=== PATIENT | male | born 1940 | race Caucasian/White ===

== ENCOUNTER 2019-12-10 13:05 | Emergency (ER) | payer OTHER ==
[~2019-12-10] VITALS: Ht 175.3 cm; Wt 93.4 kg
[2019-12-10 13:19] VITALS: BP_SYST 142
[2019-12-10 14:45] LABS: BILIRUBIN,URINE 1+ (NEGATIVE); BLOOD, URINE 3+ (NEGATIVE); CLARITY/URINE TURBID (CLEAR); COLOR,URINE RED (YELLOW); GLUCOSE,URINE TRACE (NEGATIVE); KETONES,URINE 1+ (NEGATIVE); LEUKOCYTE ESTERASE ,URINE TRACE (NEGATIVE); NITRITE, URINE NEGATIVE (NEGATIVE); PH,URINE 5.5 (5.0-8.0); PROTEIN URINE 2+ (NEGATIVE)
[2019-12-10 14:51] LABS: BACTERIA,URINE FEW /HPF (None Seen); RBC,URINE >100 /HPF (0-3)
[2019-12-10 15:09] LABS: ANION GAP 9 (5-15); CALCIUM 9.8 mg/dL (8.4-11.0); CHLORIDE 96 mmol/L (98-107); CREATININE 0.82 mg/dL (0.55-1.30); GLUCOSE 116 mg/dL (70-99); SODIUM SERUM 132 mmol/L (136-145); UREA NITROGEN, BLOOD 27 mg/dL (8-21)
[2019-12-10 15:13] LABS: BASOPHILS % (AUTO) 0.5 % (0.0-2.0); EOSINOPHILS # (AUTO) 0.1 K/uL (0.0-0.4); EOSINOPHILS % (AUTO) 0.9 % (0.0-4.0); HEMATOCRIT 44.5 % (36-54); HEMOGLOBIN 14.7 g/dL (14.0-18.0); LYMPHOCYTES % (AUTO) 18.1 % (20.5-51.5); MEAN CORPUSCULAR HEMOGLOBIN 32 pg (27-31); MEAN CORPUSCULAR HGB CONC 33 % (32-36); MEAN CORPUSCULAR VOLUME 98 fL (79.0-98.0); MONOCYTES # (AUTO) 0.6 K/uL (0.0-1.0); MONOCYTES % (AUTO) 10.9 % (1.7-9.3); NEUTROPHILS % (AUTO) 69.6 % (40.0-70.0); PLATELET COUNT (AUTO) 117 K/uL (130-430); RED BLOOD CELL COUNT(AUTO) 4.55 MIL/uL (4.2-6.2); RED CELL DISTRIBUTION WIDTH 13.4 % (9.0-15.0); WHITE BLOOD COUNT (AUTO) 5.7 K/uL (4.8-10.8)
[2019-12-10 15:15] LABS: ALANINE AMINOTRANSFERASE 49 U/L (12-78); ALBUMIN 4.4 g/dL (3.4-4.8); ASPARTATE AMINOTRANSFERASE 42 U/L (10-37); TOTAL BILIRUBIN 1.9 mg/dL (0.0-1.0)
[2019-12-10 15:41] VITALS: BP_SYST 142
== END 2019-12-10 15:30 | disposition home or self-care (01) ==
LOC: SED 13:05
DX: R31.9 Hematuria, unspecified (principal); I10 Essential (primary) hypertension
CPT/HCPCS: 36415; 80053; 81000-TC; 85025; 87086; 99284

== ENCOUNTER 2022-04-11 10:44 | Emergency (ER) | payer OTHER ==
[~2022-04-11] VITALS: Ht 175.3 cm; Wt 86.2 kg
[2022-04-11 10:48] VITALS: BP_SYST 152
--- NOTE | 2022-04-11 10:53 | NUR ---
Placed in room 08 . Placed on monitor technician, blood pressure machine and pulse oximeter. To gown for exam. Side rails up. Report given to DIANE GRAF.
--- NOTE | 2022-04-11 11:00 | NUR ---
ER at bedside examining patient.
--- NOTE | 2022-04-11 11:18 | NUR ---
Pt bib BLS from home. CC mechanical fall. Pt states no LOC, fall occurred night before. Pt has no recollection of what caused the fall. aaox2 skin intact Right should to distal elbow contusion dark coverage. Pt denies blood thinning medications, cannot recall names of the '3' medications he takes. Pt has bilateral lower leg edema+2. Pt denies SOB, no neouro defecits, Gerardo, pt smiling speaking full sentences. Pt states lives alone, a neighbor contacted 911 and will require transportation home.
[2022-04-11 11:47] LABS: BASOPHILS % (AUTO) 0.2 % (0.0-2.0); HEMATOCRIT 38.6 % (36-54); HEMOGLOBIN 13.7 g/dL (14.0-18.0); LYMPHOCYTES # (AUTO) 0.3 K/uL (1.0-5.5); MEAN CORPUSCULAR HEMOGLOBIN 35 pg (27-31); MEAN CORPUSCULAR HGB CONC 36 % (32-36); MEAN CORPUSCULAR VOLUME 98 fL (79.0-98.0); MONOCYTES # (AUTO) 0.9 K/uL (0.0-1.0); MONOCYTES % (AUTO) 8.9 % (1.7-9.3); NEUTROPHILS # (AUTO) 8.5 K/uL (1.8-7.7); NEUTROPHILS % (AUTO) 87.9 % (40.0-70.0); PLATELET COUNT (AUTO) 100 K/uL (130-430); RED BLOOD CELL COUNT(AUTO) 3.94 MIL/uL (4.2-6.2); WHITE BLOOD COUNT (AUTO) 9.7 K/uL (4.8-10.8)
[2022-04-11 12:12] LABS: ANION GAP 7 (5-15); CALCIUM 9.4 mg/dL (8.4-11.0); CHLORIDE 93 mmol/L (98-107); CREATININE 0.99 mg/dL (0.55-1.30); GLUCOSE 143 mg/dL (70-99); UREA NITROGEN, BLOOD 15 mg/dL (8-21)
[2022-04-11 12:17] LABS: ALANINE AMINOTRANSFERASE 82 U/L (12-78); ALBUMIN 3.8 g/dL (3.4-4.8); ASPARTATE AMINOTRANSFERASE 61 U/L (10-37); TOTAL BILIRUBIN 2.4 mg/dL (0.0-1.0)
[2022-04-11] MEDS ORDERED: TRAM50TA PO (12:29)
--- NOTE | 2022-04-11 12:30 | NUR ---
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 Prior to patient contact, ACSW consulted with ED staff who expressed need for social service support for additional assessment for safe discharge as patient has a shoulder injury related to fall at home. ACSW Kathe met with patient at bedside. Patient was awake, alert and oriented x4. ACSW completed introductions, reason for referral, and provided business card. Patient was open to contact. Patient confirmed he lives alone. He also shared he has a caregiver, Cecilia Lozano, who was hired by his son Tyrell (resides in [facility]). According to [place], Cecilia comes to his home 3 days a week. He also shared he receives support from his neighbor Zion Prather when needed. Patient states he is still able to drive short distances. He currently receives funds via a [employer] pension and is able to purchase his groceries and other needs with this income. Patient declined community resources including food support, senior resources, and [facility] list. He did request PCP information, and ACSW provided him with address and phone number for Dr. Mcmullen. Physician stated he would provide patient names and contact info for ortho followup. ACSW will continue to be available as needed
[2022-04-11] MEDS ORDERED: HYDROcodone/ACETAMIN 10-325 MG TAB ONE (12:59)
[2022-04-11] MEDS ORDERED: HYDROcodone/ACETAMIN 5-325 MG TAB (NORCO/ VICODIN) PO ONE (13:00)
--- NOTE | 2022-04-11 13:15 | NUR ---
sLING AFFIXED TO RIGHT SHOULDER IMMOBILIZER PAIN MEDICATED PER md ORDER. Cap refill <3sec. pulses present.
--- NOTE | 2022-04-11 13:16 | NUR ---
Pt departs via [employer] transport provided by Hospital.Patient given written and verbal discharge instructions and verbalizes understanding. ER MD discussed with patient the results and treatment provided. Patient in stable condition. ID arm band removed. Opportunity for questions provided and answered. Medication side effect fact sheet provided.
[2022-04-11 13:17] VITALS: BP_SYST 152
== END 2022-04-11 13:04 | disposition home or self-care (01) ==
LOC: SED 10:44
DX: S42.251A Displaced fracture of greater tuberosity of right humerus, initial encounter for closed fracture (principal); I10 Essential (primary) hypertension; E87.1 Hypo-osmolality and hyponatremia; R79.89 Other specified abnormal findings of blood chemistry; Z20.822 Contact with and (suspected) exposure to COVID-19; Z79.899 Other long term (current) drug therapy; W18.30XA Fall on same level, unspecified, initial encounter; Y93.89 Activity, other specified; Y92.89 Other specified places as the place of occurrence of the external cause; Y99.8 Other external cause status
CPT/HCPCS: 36415; 73030; 73060-TC; 80053; 85025; 99284